=== PATIENT | male | born 1960 | race Caucasian/White ===

== ENCOUNTER 2021-01-10 13:08 | Emergency (ER) | payer MEDICARE, OTHER ==
[~2021-01-10] VITALS: Ht 165.1 cm; Wt 59.0 kg
[2021-01-10 15:05] VITALS: BP 168/94
[2021-01-10] MEDS ORDERED: HYDROcodone-ACET 5/325MG TAB PO ONE (15:15)
[2021-01-10] MEDS ORDERED: BACITRACIN TOP OINT 1 UD PKG TOP ONE (16:15)
== END 2021-01-10 16:30 | disposition home or self-care (01) ==
LOC: ER 13:08
DX: S51.812A Laceration without foreign body of left forearm, initial encounter (principal); F17.210 Nicotine dependence, cigarettes, uncomplicated; W11.XXXA Fall on and from ladder, initial encounter; Y93.89 Activity, other specified; Y92.89 Other specified places as the place of occurrence of the external cause; Y99.8 Other external cause status
CPT/HCPCS: 12002